=== PATIENT | male | born 1995 | race Caucasian/White ===

== ENCOUNTER 2019-10-12 09:29 | Day surgery (SDC) | payer OTHER, SELFPAY ==
[2019-10-12] VITALS (16 sets, daily range): BP systolic 98–171; BP diastolic 51–102; PULSE 58–94; RESP 9–18; TEMP 36–36.7; O2SAT 94–100; BMI 34.7
--- NOTE | 2019-10-12 | DI.RAD.S_ITS ---
PROCEDURE: XR LUMBAR SPINE 2-3V INDICATIONS: L4-L5, L5-S1 MICRODISECTOMY TECHNIQUE: 4 views of the lumbar spine were acquired. COMPARISON: [facility] Outside Film, MR, MR LUMBAR SPINE WITHOUT CONTRAST, 07/27/2019, 18:33. FINDINGS: Bones: Digital acquisition imaging documenting to level left-sided port access for microdiscectomy procedures at L4-5 and L5-S1. Soft tissues: Overlying bowel gas pattern is normal. No suspicious soft tissue calcifications. IMPRESSION: Sequential microdiscectomy port access on the left at L4-L5 and thereafter L5-S1. Dictated by: Wiliam Alvarado M.D. on 10/12/2019 at 14:45 Approved by: Wiliam Alvarado M.D. on 10/12/2019 at 14:47
[2019-10-12] MEDS: LACTATED RINGERS 1,000 ML 42 ML IV ×2 (10:31→13:27)
--- NOTE | 2019-10-12 11:14 | PM.PREOP ---
Pre-operative Note Interval Note History & Physical reviewed/Exam performed by Physician: Yes Changes to H&P: No
[2019-10-12] MEDS: MIDAZOLAM 2 MG/2 ML VIAL IV (11:52)
[2019-10-12] MEDS: CEFAZOLIN 2 GM/100 ML FROZ.PIGGY IV (11:55)
--- NOTE | 2019-10-12 12:39 | SUR.OPER ---
Prone on spine table, head in foam head support, padded chest and pelvic supports, gel pad at knees, lower legs supported by pillows; nipples, genitalia and toes free of pressure, arms secured on foam padded arm boards at <90 degrees abduction. Tape over blanket at thigh secured to table.
[2019-10-12] MEDS: BUPIVACAINE 0.25% W/ EPI (PF) 10 ML VIAL 30 ML INJ (12:42)
[2019-10-12] MEDS: methylPREDNISolone acet DEPO 40 MG/ML VIAL INJ (12:43)
--- NOTE | 2019-10-12 13:56 | P.OP_ITS ---
Operative Date/Time/Diagnoses Date of procedure: 10/12/19 Time of procedure: 11:56 Pre-op diagnosis: 1. L4-5, L5-S1 disc herniation 2. Lumbar radiculopathy Post-op diagnosis: same Procedure & Clinicians Procedure: 1. L4-5, L5-S1 microdiscectomy 2. Utilization of microsurgical technique and operating microscope Same procedure as scheduled: Yes Indications: Patient has been having chronic back pain and worsening lumbar radiculopathy. Patient failed multiple conservative management with worsening pain weakness and numbness in her lower extremity. Patient has been having difficulty performing activity of daily living. After discussing risks benefits of treatment options, patient elected proceed with surgery. Surgeon: Dennis Small Stencil Maker: Sona Pal'Brien Click Yes if Unassisted: No Anesthesia Type: General Operative Notes Closure Type: primary Specimen(s): none sent Estimated Blood Loss (mL): 20 Blood products transfused: none Procedure in detail: Patient was seen in the preoperative area. Risks and benefits of the surgery was discussed with the patient. Informed consent was obtained from the patient and placed in the chart. Surgical site was marked. Patient was taken to the operative room. General anesthesia was administered. Prophylactic antibiotic was given to the patient less than 30 min before the incision was made. Patient was placed into a prone position on the Sincere table. Patient's back was then prepped and draped in the sterile fashion. Time- out was performed at this time. Using AP and lateral C-arm imaging the interval between L4-5 L5-S1 was identified and marked on patient's back. A 1 inch incision 1 in from midline was made on the left side. The fascia was incised in line with skin incision. Globus MARS retractors was placed inside the incision and docked onto the L4 and L5 lamina. Using microsurgical technique and operating microscope, a L4-5 L5-S1 laminotomy was performed using a Kerrison rongeur. Liagamentum flavum was resected at the site of the laminotomy. The disc space at L4-5 L5-S1 was identified. Patient was found to have L4-5 L5-S1 disc extrusion with significant nerve root impingement. Microdiscectomy was performed by incising the annulus with #11 blade. Microcurettes and pituitary was used to removed h erniated disc fragments of disc from the epidural space. After the microdiskectomy was completed, the area medial lateral superior and inferior to the area of the microdiskectomy was inspected and explored using a micro curette. No other impinging structure was identified. The wound was then irrigated with sterile normal saline. 40 mg Depo-Medrol was placed into the epidural space. The deep fascia was closed with 1-0 Vicryl. The subcutaneous tissue was closed with 2-0 Vicryl. The skin was closed with 4-0 Monocryl. Patient tolerated the procedure well. There were no complications. Patient was transferred recovery room in stable condition. Complications: none Post-operative Condition: stable Disposition: same day surgery Plan for aftercare: Discharge to home
[2019-10-12] MEDS: HYDROMORPHONE 2 MG INJ IV ×4 (14:10→14:20)
[2019-10-12] MEDS: LORazepam 2 MG/ML INJ 0.5 MG IV (14:11)
[2019-10-12] MEDS: hydrOXYzine 50 MG/ML INJ 25 MG IM (14:11)
[2019-10-12] MEDS: fentaNYL 100 MCG/2 ML INJ 50 MCG IV ×2 (14:24→14:35)
--- NOTE | 2019-10-12 14:59 | SUR.PHASEI ---
care transferred to A Garo RN report given.
[2019-10-12] MEDS: OXYCODONE/ACETAMINOPHEN 5/325 TABLET 1 TAB PO ×2 (15:15→15:58)
--- NOTE | 2019-10-12 15:16 | SUR.PHASEI ---
Gave po pain medication for c/o 04/01 pain.
--- NOTE | 2019-10-12 16:01 | SUR.PHASEII ---
Gave patient 2nd dose of po medication for c/o pain. Girlfriend and mother at bedside.
== END 2019-10-12 16:29 | disposition home or self-care (01) ==
LOC: OR 09:33
PROVIDERS: PCP Internal Medicine; Visit Provider Orthopaedic Surgery Orthopaedic Surgery of the Spine
PROC: (CPT 63030; principal; 2019-10-12 11:45)
DX: M51.16 Intervertebral disc disorders with radiculopathy, lumbar region (principal); F17.210 Nicotine dependence, cigarettes, uncomplicated; I10 Essential (primary) hypertension; M19.90 Unspecified osteoarthritis, unspecified site; J45.990 Exercise induced bronchospasm
CPT/HCPCS: 63030; 63035; 72100; 76000; J0690; J1030; J1170; J2060; J2250; J3010; J3410

== ENCOUNTER 2024-10-26 09:06 | Emergency (ER) | payer OTHER, SELFPAY ==
[2024-10-26 09:12] VITALS: BP 158/84; PULSE 70; RESP 16; TEMP 36.3; O2SAT 98; BMI 35.6
--- NOTE | 2024-10-26 09:17 | DI.RAD.S_ITS ---
PROCEDURE: XR ELBOW RT MIN 3V INDICATIONS: crush injury, deformity TECHNIQUE: 3 views of the elbow were acquired. COMPARISON: None. FINDINGS: Bones: No fractures or dislocations. No suspicious bony lesions. Soft tissues: No elbow joint effusion. No suspicious soft tissue calcifications. 4 cm radiopaque pain passes through the proximal ulna. IMPRESSION: 4 cm radiopaque body passes through the proximal ulna, which could be postsurgical or related to today's injury. Dictated by: Ghulam Oconnor M.D. on 10/26/2024 at 9:45 Approved by: Ghulam Oconnor M.D. on 10/26/2024 at 9:47
--- NOTE | 2024-10-26 09:17 | DI.RAD.S_ITS ---
PROCEDURE: XR FOREARM RT 2V INDICATIONS: crush injury, deformity TECHNIQUE: 2 views of the forearm were acquired. COMPARISON: None. FINDINGS: Bones: No acute fractures or dislocations. No suspicious bony lesions. Remote ulnar styloid fracture. Soft tissues: No suspicious soft tissue calcifications or masses. 4 cm radiopaque foreign body passes through the proximal ulna. IMPRESSION: No displaced fracture. 4 cm radiopaque foreign body passes through the proximal ulna. Dictated by: Ghulam Oconnor M.D. on 10/26/2024 at 9:44 Approved by: Ghulam Oconnor M.D. on 10/26/2024 at 9:45
[2024-10-26 09:55] VITALS: PULSE 72
--- NOTE | 2024-10-26 11:21 | ED.UPPEXIN ---
HPI - Extremity Injury (Upper) <Eboni Vazquez PA-C - Last Filed: 10/26/24 11:54> General Chief Complaint: Extremity Injury, Upper Stated Complaint: hurt right arm at work Time Seen by Provider: 10/26/24 10:20 History of Present Illness HPI narrative: Mr. Faulkner is a pleasant 29-year-old male with a past medical history of right ulnar fracture with pins in place who presents to the emergency department for a right forearm crush injury that occurred at work prior to arrival. 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 He is pain, swelling, bruising on the dorsal aspect of the proximal right forearm. States that he occasionally feels some tingling in his hands. Elbow and forearm both feel swollen and painful. He denies any paresthesias, weakness, bleeding, lacerations, wrist pain, hand pain, any other injuries. He is right-hand dominant. Reports he is allergic to Tylenol and Vicodin no medications prior to arrival. Related Data Home Medications Medication Instructions Recorded Confirmed No Known Home Medications 10/12/19 10/12/19 Previous Rx's Medication Instructions Recorded hydroxyzine pamoate 25 mg capsule 25 mg PO QID PRN spasm and nausea 10/12/19 (Vistaril) #20 caps oxycodone 5 mg tablet 5 mg PO Q4H PRN pain #30 tabs 10/12/19 Allergies Allergy/AdvReac Type Severity Reaction Status Date / Time hydrocodone [From Vicodin] AdvReac Intermediate Verified 10/12/19 09:59 Review of Systems <Eboni Vazquez PA-C - Last Filed: 10/26/24 11:54> Review of Systems ROS Unobtainable: All systems reviewed & are unremarkable except as noted in HPI and below Patient History <Eboni Vazquez PA-C - Last Filed: 10/26/24 11:54> Medical History Intervertebral disc disorders with radiculopathy, lumbar region Social History household members: significant other Smoking Status: Current every day smoker alcohol intake: current Smoking Status: Current every day smoker tobacco type: cigarettes alcohol intake frequency: a few times a week Alcohol type: beer Exam <Eboni Vazquez PA-C - Last Filed: 10/26/24 11:54> Narrative Exam Narrative: GENERAL: 29 year old patient appears stated age. Well-developed patient, in no acute distress. HEAD: Atraumatic. Normocephalic. CARDIOVASCULAR: Regular rate. Strong and equal bilateral radial pulses. Brisk capillary refill on all 10 fingers. RESPIRATORY: ?Nonlabored respirations. ?Speaking in clear, full sentences. ?? EXTREMITIES: Ecchymosis and edema on proximal right dorsal forearm. No lacerations. No tenderness to palpation of right elbow or right wrist. Full range of motion of elbow and wrist. Sensation and strength intact in the distribution of median, ulnar, radial nerves bilaterally. No tenderness to palpation on palmar aspect of right forearm. NEURO: AOx3. ?Clear speech. ?Moves all 4 extremities appropriately. SKIN: No rash or erythema of visible areas, ecchymosis on dorsal right forearm described above. Initial Vital Signs Initial Vital Signs: Vital Signs Temperature 97.4 F L 10/26/24 09:12 Pulse Rate 70 10/26/24 09:12 Respiratory Rate 16 10/26/24 09:12 Blood Pressure 158/84 H 10/26/24 09:12 Pulse Oximetry 98 10/26/24 09:12 Oxygen Delivery Method Room Air 10/26/24 09:12 <Parris Maher DO - Last Filed: 10/26/24 18:31> Initial Vital Signs Initial Vital Signs: Vital Signs Temperature 97.4 F L 10/26/24 09:12 Pulse Rate 70 10/26/24 09:12 Respiratory Rate 16 10/26/24 09:12 Blood Pressure 158/84 H 10/26/24 09:12 Pulse Oximetry 98 10/26/24 09:12 Oxygen Delivery Method Room Air 10/26/24 09:12 Course <Eboni Vazquez PA-C - Last Filed: 10/26/24 11:54> Orders Ordered: Discontinued Medications Ibuprofen (Ibuprofen 400 Mg Tablet) 600 mg PO NOW ONE Stop: 10/26/24 11:21 Last Admin: 10/26/24 11:31 Dose: 600 mg Documented By: CTS Vital Signs Vital signs: Vital Signs - 8 hr 10/26/24 11:33 Pulse Rate 77 Respiratory Rate 16 Blood Pressure 150/82 H Pulse Oximetry 97 Oxygen Delivery Method Room Air <Parris Keyshawn CappsconradDO - Last Filed: 10/26/24 18:31> Orders Ordered: Discontinued Medications Ibuprofen (Ibuprofen 400 Mg Tablet) 600 mg PO NOW ONE Stop: 10/26/24 11:21 Last Admin: 10/26/24 11:31 Dose: 600 mg Documented By: CTS Vital Signs Vital signs: Vital Signs - 8 hr 10/26/24 11:33 Pulse Rate 77 Respiratory Rate 16 Blood Pressure 150/82 H Pulse Oximetry 97 Oxygen Delivery Method Room Air MDM - Extremity Injury (Upper) <Eboni Vazquez PA-C - Last Filed: 10/26/24 11:54> Medical Records Attestation: I reviewed the patient's medical records. Imaging Data Right Elbow X-Ray: Radiologist's Impression: PROCEDURE: XR ELBOW RT MIN 3V INDICATIONS: crush injury, deformity TECHNIQUE: 3 views of the elbow were acquired. COMPARISON: None. FINDINGS: Bones: No fractures or dislocations. No suspicious bony lesions. Soft tissues: No elbow joint effusion. No suspicious soft tissue calcifications. 4 cm radiopaque pain passes through the proximal ulna. IMPRESSION: 4 cm radiopaque body passes through the proximal ulna, which could be postsurgical or related to today's injury. Right Forearm X-Ray: Radiologist's Impression: PROCEDURE: XR FOREARM RT 2V INDICATIONS: crush injury, deformity TECHNIQUE: 2 views of the forearm were acquired. COMPARISON: None. FINDINGS: Bones: No acute fractures or dislocations. No suspicious bony lesions. Remote ulnar styloid fracture. Soft tissues: No suspicious soft tissue calcifications or masses. 4 cm radiopaque foreign body passes through the proximal ulna. IMPRESSION: No displaced fracture. 4 cm radiopaque foreign body passes through the proximal ulna. MDM Narrative Medical decision making narrative: 29-year-old male with a past medical history of right ulnar fracture with pins in place who presents to the emergency department for a right forearm crush injury that occurred at work prior to arrival. Differential diagnosis includes but is not limited to crush injury, hematoma, contusion, fracture, sprain, strain, etc. On exam patient is in no acute distress, nontoxic appearing, right arm neurovascularly intact. He has a contusion/hematoma on the proximal dorsal right forearm that is tender. No bony deformities or bony tenderness. Right forearm and right elbow x-ray obtained in triage revealing no fracture, they do show old fracture and old surgical pin. Suspect patient's symptoms are related to crush injury hematoma. We will treat with Avinash wrap, rice therapy, ibuprofen. Discussed signs and symptoms to return to the ED for, recommended follow up with PCP or orthopedic for persistent or worsening pain. Patient verbalized understanding of all information agreeable to plan. He is stable for discharge home. Work paperwork filled out. Discharge Plan Departure Patient Disposition: Home Clinical Impression: Contusion of forearm, right Qualifiers: Encounter type: initial encounter Qualified Code(s): S50.11XA - Contusion of right forearm, initial encounter Crushing injury of forearm, right Qualifiers: Encounter type: initial encounter Qualified Code(s): S57.81XA - Crushing injury of right forearm, initial encounter Instructions: DI for Crush Injury Activity Restrictions/Additional Instructions: Thank you for coming to the emergency department today. Your x-rays today show no fractures of the right forearm or elbow. Please use RICE therapy for your pain in addition to ibuprofen/acetaminophen. Rest the painful area. Ice the area of pain/swelling for at least 15 minutes, 4x a day. Compress the area of swelling using a brace, wrap, or splint if applied. Elevate the painful or swollen extremity by supporting it above the level of the heart with pillows when sitting or laying. Please take Ibuprofen (Motrin/Advil) or Acetaminophen (Tylenol) for pain. These are available over the counter. You may take Ibuprofen 600 mg every 8 hours with food for pain. You may also take Acetaminophen 650 mg every 4-6 hours for pain. Do not exceed 3000 mg of Tylenol a day as this can cause liver damage. Do not drink alcohol with either of these medications. Please follow up with your primary care doctor within the next 2-3 days for ER follow-up. (If you do not have a PCP you can call [phone]. ?to schedule an appointment with an [facility] Primary Care Provider) IF YOU DEVELOP ANY NEW OR WORSENING SYMPTOMS, RETURN TO THE ER! Please read the attached instructions, they highlight more specific treatments and interventions for you at home. Thank you for letting me participate in your care, Eboni Vazquez PA-C Prescriptions: No Action No Known Home Medications oxycodone 5 mg tablet 5 mg PO Q4H PRN (Reason: pain) Qty: 30 0RF hydroxyzine pamoate [Vistaril] 25 mg capsule 25 mg PO QID PRN (Reason: spasm and nausea) Qty: 20 0RF Referrals: Scarlett Patel MD [Primary Care Provider] - Stand Alone Forms: Patient Portal/API/Survey, Work Release Note ED Sign-out <Parris Maher DO - Last Filed: 10/26/24 18:31> Cosign ED Attending Cosmeryature Attestation: I was immediately available in the department for consultation.
[2024-10-26] MEDS: IBUPROFEN 400 MG TABLET 600 MG PO (11:31)
[2024-10-26 11:33] VITALS: BP 150/82; PULSE 77; RESP 16; O2SAT 97
--- NOTE | 2024-10-26 11:57 | PC.NURSE ---
pt's L&I paperwork was filled out by SRIDHAR Mckeon. Copy in chart.
== END 2024-10-26 11:58 | disposition home or self-care (01) ==
PROVIDERS: Emergency Provider Physician Assistant; PCP Internal Medicine
DX: S57.81XA Crushing injury of right forearm, initial encounter (principal); S50.11XA Contusion of right forearm, initial encounter; Z87.81 Personal history of (healed) traumatic fracture; Z98.890 Other specified postprocedural states; W23.0XXA Caught, crushed, jammed, or pinched between moving objects, initial encounter; Y99.0 Civilian activity done for income or pay
CPT/HCPCS: 73080; 73090; 99283; 99284

== ENCOUNTER 2025-08-11 06:11 | Emergency (ER) | payer OTHER, SELFPAY ==
[2025-08-11 06:15] VITALS: BP 183/105; PULSE 94; RESP 18; TEMP 36.9
--- NOTE | 2025-08-11 06:17 | ED_ITS ---
HPI - General Adult General Chief complaint: Extremity Injury, Upper Stated complaint: Small cut on right middle finger L&I Time Seen by Provider: 08/11/25 06:16 History of Present Illness HPI narrative: 30-year-old gentleman no significant medical problems while working at [employer] on 08/05sustained a small cut to the dorsal surface of the PIP joint right middle finger. Did not seem to be much of a problem at the time. By the , it was more swollen, he was soaking it and noted moderate amount of purulent material easily drained. Again, seemed to improve but over the last day or so he is noticing increasing swelling to the right middle finger, dorsum of the hand and some erythema along the finger itself. There was no lymphangitic streaking. He is able to flex and extend the fingers with some limitation to the middle finger because of swelling overall. Does not appear to have any tenderness up into the hand wrist flexor tendons. There has been no additional draining. He is not describing any systemic symptoms and has not had any recent fevers. He is not up-to-date on tetanus Related Data Previous Rx's ?Medication ?Instructions ?Recorded hydroxyzine pamoate 25 mg capsule 25 mg PO QID PRN spa sm and nausea 10/12/19 (Vistaril) #20 caps oxycodone 5 mg tablet 5 mg PO Q4H PRN pain #30 tab s 10/12/19 doxycycline hyclate 100 mg capsule 100 mg PO BID #14 c aps 08/11/25 Allergies Allergy/AdvReac Type Severity Reaction Status Date / Time hydrocodone (From Vicodin) AdvReac Intermediate Verified 10/12/19 09:59 Review of Systems Review of Systems Narrative: Pertinent positive and negative findings as per HPI Patient History Medical History Intervertebral disc disorders with radiculopathy, lumbar region Social History household members: significant other alcohol intake: current tobacco type: cigarettes alcohol intake frequency: a few times a week Alcohol type: beer Exam Initial Vital Signs Initial Vital Signs: General: Alert appropriate in no acute distress Respiratory: Able to speak in full sentences, no obvious respiratory distress Skin: No obvious rashes, warm and dry Neurologic: Grossly intact no obvious asymmetries or abnormalities Psych: appropriate insight and affect, cooperative Extremity: Dorsum of the right hand is slightly swollen, right middle finger is swollen there is some minor erythema along the medial and lateral edges of the finger. Small wound over the dorsal surface of the PIP joint with no obvious fluctuance or drainage. He is neurovascularly intact Medical Decision Making MDM Narrative Medical decision making narrative: Otherwise healthy 30-year-old gentleman with small cut to the dorsum of the right middle finger almost 6 days ago, has drained and is now still swollen not clearly improving and comes in for further evaluation. On exam it does not appear that he has an extensor or flexor tenosynovitis. Does not appear to have deeper tissue abscess. It does look like there is some cellulitis developing around the small abrasion to the knuckle. At this point I do not believe that he is septic, but this is a deep tissue infection, pain does not suggest significant fascial spreading. There was no obvious abscess. I did review all of my concerns including significant deeper tissue infection and consequences of finger infections that are not appropriately treated. With shared decision- making we opted to begin with antibiotics and evaluate over the next 24-48 hours. He clearly understands the importance of returning to the ER if he is not getting better. He is given a tetanus shot today. Additional Information: Self and shared company form for injury at work filled out. Activity prescription form filled out Discharge Plan Departure Patient Disposition: Home Clinical Impression: Finger infection, Elevated blood pressure reading Instructions: DI for High Blood Pressure Activity Restrictions/Additional Instructions: Thank you for coming in today I share your concern that after draining, your finger infection is still not obviously improving. Finger infections can turn into a ?very big deal?. At this time, I do not see any streaking up your arm, yes there is swelling over the back of your hand but it does not look like there was that much more pus that needs to be drained out. I am going to suggest that we start with antibiotics and if you are not obviously improving within 24 hours or clearly getting worse, you do need to return to the emergency department for further evaluation including lab work, IV antibiotics and imaging of the finger. Using 400 mg of ibuprofen (2 [id number] pills) and 1 Tylenol every 6 hours can be very helpful in controlling pain. You were given a tetanus shot today this should be good for 10 years, until 2034 While you were in the ER, your blood pressure was significantly elevated. I would recommend that you talk to your about getting a blood pressure cuff to have at home and keep track of blood pressures when you are not in the emergency department with pain and with a finger infection. At your age your blood pressure should be 120/70 or lower. I would strongly recommend finding a primary care physician. If you do not have a primary care physician, you can contact [facility] at [phone]. They can help get you set up with a physician in our local community Your self-insured company report was filled out today Prescriptions: New doxycycline hyclate 100 mg capsule 100 mg PO BID Qty: 14 0RF No Action oxycodone 5 mg tablet 5 mg PO Q4H PRN (Reason: pain) Qty: 30 0RF hydroxyzine pamoate [Vistaril] 25 mg capsule 25 mg PO QID PRN (Reason: spasm and nausea) Qty: 20 0RF Referrals: Scarlett Patel MD [Primary Care Provider, Internal Medicine] Stand Alone Forms: Patient Portal/API
[2025-08-11] MEDS: DOXYCYCLINE HYCLATE 100 MG TABLET PO (06:33)
[2025-08-11] MEDS: TET,DIPH,PERTUSS(ACELL),VAC/PF 0.5 ML SYRINGE IM (06:34)
--- OUTSIDE RECORDS SUMMARY | 2025-08-13 13:09 | XMS_ITS | Encounter Summary ---
Author Organization [facility] Address [facility] [address] Care Team Providers Care Paper Supervisor Name Role Phone Scarlett Patel Primary Care Provider [phone] Encounter Details Date Type Department Care Team (Late st Contact Info) Description 05/29/2017 Scanned Document SCANNED ONLY Scanned, Document Social History Tobacco Use Types Packs/Day Years Used Date Smoking Tobacco: Every Day Cigarettes Smokeless Tobacco: Never Alcohol Use Standard Drinks/Week Comments Yes 0 (1 standard drink = 0.6 oz pur e alcohol) Occasional Sex and Gender Information Value Date Recorded Sex Assigned at Not on file Legal Sex Male 3:51 AM PDT Gender Identity Not on file Sexual Orientation Not on file documented as of this encounter Plan of Treatment Not on file documented as of this encounter Visit Diagnoses Not on filedocumented in this encounter Care Teams Paper Supervisor Relationship Specialty Start Date End Date Scarlett Patel [address] [place], [place] [id number] PCP - General Internal Medicine 03/21/23 documented as of this encounter
--- OUTSIDE RECORDS SUMMARY | 2025-08-13 13:09 | XMS_ITS | Encounter Summary ---
Author Organization [facility] Address [facility] [address] Care Team Providers Care Online Marketing Manager Name Role Phone Scarlett Patel Primary Care Provider [phone] Encounter Details Date Type Department Care Team (Late st Contact Info) Description 01/10/2018 Scanned Document SCANNED ONLY Scanned, Document Social History Tobacco Use Types Packs/Day Years Used Date Smoking Tobacco: Former Cigarettes Q uit: 05/24/2017 Smokeless Tobacco: Never Alcohol Use Standard Drinks/Week [...] on filedocumented in this encounter Care Teams Online Marketing Manager Relationship Specialty Start Date End Date Scarlett Patel [address] [place] [phone] PCP - General Internal Medicine 03/21/23 documented as of this encounter
--- OUTSIDE RECORDS SUMMARY | 2025-08-13 13:09 | XMS_ITS | Clinical Summary ---
Author Organization [facility] Address [facility] [address] Care Team Providers Care Stock Selector Name Role Phone Scarlett Patel Primary Care Provider [phone] Allergies No known active allergies Medications * This document contains information received from the source organization and may not represent a complete record from that organization. ibuprofen (MOTRIN) 200 MG tablet Take 200 mg by mouth every 6 (six) hours as needed for Pain Active oxyCODONE-aceta minophen (PERCOCET) 5-325 mg per tablet TK 1 TO 2 TS PO TID PRN. 0 8 Active albuterol 90 mcg/actuation inhaler Inhale 2 puffs into the lungs every 4 (four) hours as needed for Wheezing or Shortness of Breath 1 each 3 Active Active Problems Problem Noted Date Diagnosed Date Olecranon fracture Social History Tobacco Use Types Packs/Day Years [...] on file Sexual Orientation Not on file Last Filed Vital Signs Vital Sign Reading Time Taken Comments Blood Pressure 151/102 03/21/2023 7:09 AM PDT Pulse 78 03/21/2023 8:19 AM PDT Temperature 36.7 C (98.1 F) 03/21/2023 7:09 AM PDT Respiratory Rate 16 03/21/2023 8:19 AM PDT Oxygen Saturation 97% 03/21/2023 8:19 AM PDT Inhaled Oxygen Concentration - - Weight 104.3 kg (230 lb) 02/14/2018 10:43 AM PDT Height 177.8 cm (5' 10) 02/14/2018 10:43 AM PDT Body Mass Index 33 02/14/2018 10:43 AM PDT Plan of Treatment Health Maintenance Due Date Last Done Comments Disability Screening 1995 Hepatitis C Screening 1995 Varicella Vaccine (1 of 2 - 13+ 2-dose series) 2008 HIV Screening 2010 DTaP/Tdap/Td Vaccine (1 - Tdap) 2014 HPV Vaccine (1 - 3-dose SCDM series) 2022 Drug, Alcohol, and Depressio n Screening 09/23/2024 SOGIE 09/23/2024 Covid-19 Vaccine (1 - 2024-2 6 season) 2025 Influenza Vaccine (#1) 2025 Zoster (1 of 2) 2045 RSV Vaccines (1 - 1-dose 75+ series) 2070 Pneumococcal Ages 0-5 Years and At Risk Patients Ages 6-49 Years Aged Out No longer eligible based on patient's age to complete this topic Medical Devices Implanted Type Area Assignment Desk Assistant Device Identifier Shelf Expiration Date Model / Serial / Lot Pin Tnsnbnd Kit 70mm Orth Ss Strl - [id number] Implanted:Qty : 1 on 05/31/2017 by Parviz Davalos MD at [facility] Implant Screw Right: Elbow ACUMED 03/22/2020 [id number] / / [id number] Wire 150mm 1.25mm Martínez Ss - [id number] Implanted:Qty : 1 on 05/31/2017 by Parviz Davalos MD at [facility] Implant Screw Right: Elbow [employer]ES [id number] / / Wire Ss Ethpk 7 18in Tie Mfil Cstm Nonabsorb - [id number] Implanted:Qty : 1 on 05/31/2017 by Parviz Davalos MD at [facility] Implant Wire Right: Elbow [employer] [id number] / / Insurance [address] [phone] [facility] [address] [phone] [facility] Advance Directives Documents on File Type Date Recorded Patient Receptionist Doctor'S Office Expl anation Advance Directives and Livin g Will 05/31/2017 12:00 AM * Full Code (Latest Code Status on File) Date Activated Date Inactivated Comments 05/31/2017 1:36 PM 05/31/2017 9:30 PM Care Teams Stock Selector Relationship Specialty Start Date End Date Scarlett Patel [address] [place] [id number] PCP - General Internal Medicine 03/21/23
--- OUTSIDE RECORDS SUMMARY | 2025-08-13 13:09 | XMS_ITS | Encounter Summary ---
Author Organization [facility] Address [facility] [address] Care Team Providers Care Interior Design Program Chair Name Role Phone Scarlett Patel Primary Care Provider [phone] Encounter Details Date Type Department Care Team (Late st Contact Info) Description 11/21/2017 Scanned Document SCANNED ONLY Scanned, Document Social [...] on filedocumented in this encounter Care Teams Interior Design Program Chair Relationship Specialty Start Date End Date Scarlett Patel [address] [place] [id number] PCP - General Internal Medicine 03/21/23 documented as of this encounter
--- OUTSIDE RECORDS SUMMARY | 2025-08-13 13:09 | XMS_ITS | Clinical Summary ---
Author Organization [facility] Address [address] [place] [address] Care Team Providers Care Substation Electrician Name Role Phone Pcp, None Selected Primary Care Provider Unavail able Social History Tobacco Use Types Packs/Day Years Used Date Smoking Tobacco: Never Assessed Sex and Gender Information Value Date Recorded Sex Assigned at Not on file Legal Sex Male 10:48 AM PST Gender Identity Not on file Sexual Orientation Not on file Plan of Treatment Health Maintenance Due Date Last Done Comments MMR Vaccines (1 of 1 - Stand colin series) 1996 Depression Screening (PHQ-2) 2007 Varicella Vaccines (1 of 2 - 13+ 2-dose series) 2008 DTaP,Tdap,and Td Vaccines (1 - Tdap) 2014 Hepatitis B Vaccines (1 of 3 - 19+ 3-dose series) 2014 COVID-19 Vaccine ( - 2024-2 6 season) 2025 Influenza Vaccine (#1) 2025 RSV Patients Over 60 years O R qualifying ( Patients) (1 - 1-dose 75+ series) 2070 HM Pneumococcal Combined Age 0-49 Aged Out No longer eligible based on patient's age to complete this topic HPV Vaccines Aged Out No longer eligi ble based on patient's age to complete this topic Hepatitis A Vaccines Aged Out No long er eligible based on patient's age to complete this topic IPV Vaccines Aged Out No longer eligi ble based on patient's age to complete this topic Insurance * Guarantor: Fritz Faulkner Account Type Relation to Patient Date of Phone Billing Address Personal/Family Self 1995 [address] [facility] [id number] [place] [address] [facility] Care Teams Substation Electrician Relationship Specialty Start Date End Date Pcp, None Selected PCP - General 01/07/25
--- OUTSIDE RECORDS SUMMARY | 2025-08-13 13:09 | XMS_ITS | Encounter Summary ---
Author Organization Located within [facility] Address [address] [place] [address] Care Team Providers Care Master Control Engineer Name Role Phone Scarlett Patel Primary Care Provider [phone] Reason for Referral * Hospital-Outpatient (Routine) - Closed Specialty Diagnoses / Procedures Referred By Yuri gordon Referred To Contact General Surgery Diagnoses Closed displaced fracture of olecranon process of left ulna with intra-articular extension, initial encounter Procedures Case request operating room: ORIF [place]OW [place] OPEN TX ULNAR FRACTURE PROX END Parviz Davalos MD [facility] [place] [address] [place] [address] Phone: tel: Referral ID Status Reason Start Date Expiration Date V isits Requested Visits Authorized [id number] Closed Service Not Available In-House 05/29/2017 05/29/2018 1 1 Encounter Details Date Type Department Care Team (Late st Contact Info) Description 05/29/2017 Prep for Case ORTHOPEDIC SURGERY - [place], [place] - [facility] [address] [address] [place] [address] Parviz Davalos MD License Closed displaced fracture of olecranon process of left ulna with intra-articular extension, initial encounter Social History Tobacco Use Types Packs/Day Years [...] documented as of this encounter Visit Diagnoses Diagnosis Closed displaced fracture of olecranon process of left ulna with intra-articular extension, initial encounter documented in this encounter Care Teams Master Control Engineer Relationship Specialty Start Date End Date Scarlett Patel [address] [place] [phone] PCP - General Internal Medicine 03/21/23 documented as of this encounter
--- OUTSIDE RECORDS SUMMARY | 2025-08-13 13:09 | XMS_ITS | Encounter Summary ---
Author Organization [facility] Address [facility] [address] Care Team Providers Care Application Designer Name Role Phone Scarlett Patel Primary Care Provider [phone] Encounter Details Date Type Department Care Team (Late st Contact Info) Description 07/02/2017 Scanned Document SCANNED ONLY Scanned, Document Social [...] on filedocumented in this encounter Care Teams Application Designer Relationship Specialty Start Date End Date Scarlett Patel [address] [place] [phone] PCP - General Internal Medicine 03/21/23 documented as of this encounter
--- OUTSIDE RECORDS SUMMARY | 2025-08-13 13:09 | XMS_ITS | Encounter Summary ---
Author Organization [facility] Address [facility] [address] Care Team Providers Care Off Track Betting Manager Name Role Phone Scarlett Patel Primary Care Provider [phone] Encounter Details Date Type Department Care Team (Late st Contact Info) Description 10/04/2017 Scanned Document SCANNED ONLY Scanned, Document Social [...] on filedocumented in this encounter Care Teams Off Track Betting Manager Relationship Specialty Start Date End Date Scarlett Patel [address] [place] [phone] PCP - General Internal Medicine 03/21/23 documented as of this encounter
--- OUTSIDE RECORDS SUMMARY | 2025-08-13 13:09 | XMS_ITS | Encounter Summary ---
Author Organization [facility] Address [address] [place] [address] Care Team Providers Care Multimedia Instructional Designer Name Role Phone Scarlett Patel Primary Care Provider [phone] Reason for Referral * Outpatient [facility] (Routine) - Closed Specialty Diagnoses / Procedures Referred By Yuri gordon Referred To Contact Diagnoses Closed displaced fracture of olecranon process of left ulna with intra-articular extension, initial encounter Procedures [place] REMOVAL DEEP IMPLANT Parviz Davalos MD [facility] [address] [place] [address] Referral ID Status Reason Start Date Expiration Date V isits Requested Visits Authorized [id number] Closed Service Not Available In-House 09/20/2017 09/20/2018 1 1 Encounter Details Date Type Department Care Team (Latest Contact Info) Description 09/20/2017 Order Pickling Machine Operator ORTHOPEDIC SURGERY - [place], [place] - [facility] [id number] [facility] [address] [place] [address] Parviz Davalos MD License Closed displaced fracture [...] as of this encounter Plan of Treatment Scheduled Referrals Name Type Priority Associated Diagnoses Order Schedule External - (Surgery Scheduling) - [facility] Outpatient Referral Routine Closed displaced fracture of olecranon process of left ulna with intra-articular extension, initial encounter Ordered: 09/20/2017 documented as of this encounter Visit Diagnoses Diagnosis Closed displaced fracture of olecranon process of left ulna with intra-articular extension, initial encounter documented in this encounter Care Teams Multimedia Instructional Designer Relationship Specialty Start Date End Date Scarlett Patel [address] [place] [id number] PCP - General Internal Medicine 03/21/23 documented as of this encounter
--- OUTSIDE RECORDS SUMMARY | 2025-08-13 13:09 | XMS_ITS | Encounter Summary ---
Author Organization [facility] Address [facility] [address] Care Team Providers Care Mine Wirer Name Role Phone Scarlett Patel Primary Care Provider [phone] Encounter Details Date Type Department Care Team (Late st Contact Info) Description 02/12/2018 Scanned Document SCANNED ONLY Scanned, Document Social [...] on filedocumented in this encounter Care Teams Mine Wirer Relationship Specialty Start Date End Date Scarlett Patel [address] [place] [id number] PCP - General Internal Medicine 03/21/23 documented as of this encounter
--- OUTSIDE RECORDS SUMMARY | 2025-08-13 13:09 | XMS_ITS | Encounter Summary ---
Author Organization [facility] Address [facility] [address] Care Team Providers Care Dairy Helper Name Role Phone Scarlett Patel Primary Care Provider [phone] Encounter Details Date Type Department Care Team (Latest Contact Info) Description 07/24/2014 Documentation SCANNED ONLY Scanned, Document Social History Tobacco [...] on filedocumented in this encounter Care Teams Dairy Helper Relationship Specialty Start Date End Date Scarlett Patel [address] [place] [address] PCP - General Internal Medicine 03/21/23 documented as of this encounter
== END 2025-08-11 06:51 | disposition home or self-care (01) ==
PROVIDERS: Emergency Provider Emergency Medicine; PCP Internal Medicine
DX: L03.011 Cellulitis of right finger (principal); R03.0 Elevated blood-pressure reading, without diagnosis of hypertension; Z23 Encounter for immunization
CPT/HCPCS: 90471; 99283; 90715

== ENCOUNTER 2025-08-12 06:03 | Emergency (ER) | payer OTHER, SELFPAY ==
[2025-08-12] VITALS (11 sets, daily range): BP systolic 98–134; BP diastolic 56–79; PULSE 67–93; RESP 20; TEMP 36.5; O2SAT 94–97; BMI 35.9
--- NOTE | 2025-08-12 06:13 | ED.GENADULT ---
HPI - General Adult <Jeffyr Small, DO - Last Filed: 08/12/25 11:29> General Chief complaint: Nausea/Vomiting/Diarrhea Stated complaint: Blood pressure 145/50 sent by PCP Time Seen by Provider: 08/12/25 06:12 History of Present Illness HPI narrative: 30-year-old gentleman with no significant medical history seen for small cut to dorsal surface of PIP joint of right middle finger prescribed doxycycline for which he started his 1st dose last evening and started to develop multiple episodes of nonbilious nonbloody nausea vomiting along with brain fog for which he just came to the ER after his overnight shift this morning. Patient denies any diarrhea, constipation, abdominal pain, chest pain, cough, sore throat, fever, chills, body aches, urinary complaints. Patient reports his got over RSV 2 weeks ago his symptoms have since resolved also from that episode about a week ago. Other than what is stated 14 point review of system is negative. Related Data Previous Rx's ?Medication ?Instructions ?Recorded hydroxyzine pamoate 25 mg capsule 25 mg PO QID PRN spasm and nausea 10/12/19 (Vistaril) #20 caps oxycodone 5 mg tablet 5 mg PO Q4H PRN pain #30 tabs 10/12/19 doxycycline hyclate 100 mg capsule 100 mg PO BID #14 caps 08/11/25 cefpodoxime 200 mg tablet 200 mg PO BID #20 tabs 08/12/25 ondansetron 4 mg disintegrating 4 mg PO Q8H PRN nausea and 08/12/25 tablet vomiting #7 tabs sulfamethoxazole 800 1 tab PO BID #10 tabs 08/12/25 mg-trimethoprim 160 mg tablet (Bactrim DS) Allergies Allergy/AdvReac Type Severity Reaction Status Date / Time hydrocodone (From Vicodin) AdvReac Intermediate Verified 08/12/25 06:10 Review of Systems <Jeffry Small, DO - Last Filed: 08/12/25 11:29> Review of Systems ROS Unobtainable: All systems reviewed & are unremarkable except as noted in HPI and below Patient History <Jeffry Small, DO - Last Filed: 08/12/25 11:29> Medical History Intervertebral disc disorders with radiculopathy, lumbar region Social History household members: significant other Smoking Status: Current every day smoker alcohol intake: current tobacco type: cigarettes alcohol intake frequency: a few times a week Alcohol type: beer Exam <Jeffry Small DO - Last Filed: 08/12/25 11:29> Narrative Exam Narrative: GENERAL: [30] year old patient appears stated age. Well-developed patient, in mild distress. HEAD: Atraumatic. Normocephalic. EYES: Pupils equal round and reactive. Extraocular motions intact. No scleral icterus. No injection or drainage. ENT: Nose without bleeding, purulent drainage. Throat without erythema, tonsillar hypertrophy or exudate. Airway patent. NECK: Trachea midline. Non tender CARDIOVASCULAR: Regular rate and rhythm without murmurs, gallops, or rubs. RESPIRATORY: Clear to auscultation. Breath sounds equal bilaterally. No wheezes, rales, or rhonchi. GASTROINTESTINAL: Abdomen soft, non-tender, nondistended. EXTREMITIES: No edema or joint tenderness. BACK: Nontender without deformity or crepitance. No flank tenderness. NEURO: AOx3. SKIN: No rash or erythema of visible areas Initial Vital Signs Initial Vital Signs: Vital Signs Temperature 97.7 F 08/12/25 06:10 Pulse Rate 93 H 08/12/25 06:10 Respiratory Rate 20 08/12/25 06:10 Blood Pressure 134/79 08/12/25 06:10 Pulse Oximetry 97 08/12/25 06:10 Oxygen Delivery Method Room Air 08/12/25 06:10 <Esvin Don MD - Last Filed: 08/12/25 10:18> Initial Vital Signs Initial Vital Signs: Vital Signs Temperature 97.7 F 08/12/25 06:10 Pulse Rate 93 H 08/12/25 06:10 Respiratory Rate 20 08/12/25 06:10 Blood Pressure 134/79 08/12/25 06:10 Pulse Oximetry 97 08/12/25 06:10 Oxygen Delivery Method Room Air 08/12/25 06:10 Course <Jeffry Small DO - Last Filed: 08/12/25 11:29> Orders Ordered: ED Orders 08/12/25 06:26 CBC Auto Diff [Complete Blood Count AUTO DIFF] Stat CMP [Comprehensive Metabolic Panel] Stat Lipase Stat 08/12/25 06:36 Covid-19 + FLU A/B + RSV - PCR Stat Discontinued Medications Lactated Ringer's (Lactated Ringers) 1,000 mls @ 1,000 mls/hr IV BOLUS ONE Stop: 08/12/25 07:21 Last Infusion: 08/12/25 07:43 Dose: Infused Documented By: Admin: 08/12/25 06:31 Dose: 1,000 mls/hr Documented By: WILLAM Ondansetron HCl (Ondansetron 4 Mg/2 Ml Inj) 4 mg IV NOW ONE Stop: 08/12/25 06:23 Last Admin: 08/12/25 06:30 Dose: 4 mg Documented By: WILLAM Vital Signs Vital signs: Vital Signs - 8 hr 08/12/25 06:10 08/12/25 06:34 08/12/25 06:36 Temperature 97.7 F Pulse Rate 93 H 89 Respiratory Rate 20 Blood Pressure 134/79 129/67 Pulse Oximetry 97 97 Oxygen Delivery Method Room Air 08/12/25 06:36 08/12/25 07:00 08/12/25 07:00 Temperature Pulse Rate 82 93 H Respiratory Rate Blood Pressure 118/67 Pulse Oximetry 96 96 Oxygen Delivery Method 08/12/25 07:30 08/12/25 07:30 08/12/25 08:00 Temperature Pulse Rate 80 82 Respiratory Rate Blood Pressure 118/61 Pulse Oximetry 97 96 Oxygen Delivery Method 08/12/25 08:00 08/12/25 08:30 08/12/25 08:30 Temperature Pulse Rate 81 Respiratory Rate Blood Pressure 123/62 103/56 L Pulse Oximetry 94 Oxygen Delivery Method 08/12/25 09:00 08/12/25 09:00 08/12/25 09:30 Temperature Pulse Rate 67 85 Respiratory Rate Blood Pressure 98/57 L Pulse Oximetry 96 96 Oxygen Delivery Method 08/12/25 09:31 08/12/25 09:31 08/12/25 10:00 Temperature Pulse Rate 80 Respiratory Rate Blood Pressure 128/65 119/61 Pulse Oximetry 97 Oxygen Delivery Method 08/12/25 10:00 Temperature Pulse Rate 84 Respiratory Rate Blood Pressure Pulse Oximetry 97 Oxygen Delivery Method <Esvin Don MD - Last Filed: 08/12/25 10:18> Orders Ordered: ED Orders 08/12/25 06:26 CBC Auto Diff [Complete Blood Count AUTO DIFF] Stat CMP [Comprehensive Metabolic Panel] Stat Lipase Stat 08/12/25 06:36 Covid-19 + FLU A/B + RSV - PCR Stat Discontinued Medications Lactated Ringer's (Lactated Ringers) 1,000 mls @ 1,000 mls/hr IV BOLUS ONE Stop: 08/12/25 07:21 Last Infusion: 08/12/25 07:43 Dose: Infused Documented By: Admin: 08/12/25 06:31 Dose: 1,000 mls/hr Documented By: WILLAM Ondansetron HCl (Ondansetron 4 Mg/2 Ml Inj) 4 mg IV NOW ONE Stop: 08/12/25 06:23 Last Admin: 08/12/25 06:30 Dose: 4 mg Documented By: WILLAM Vital Signs Vital signs: Vital Signs - 8 hr 08/12/25 06:10 08/12/25 06:34 08/12/25 06:36 Temperature 97.7 F Pulse Rate 93 H 89 Respiratory Rate 20 Blood Pressure 134/79 129/67 Pulse Oximetry 97 97 Oxygen Delivery Method Room Air 08/12/25 06:36 08/12/25 07:00 08/12/25 07:00 Temperature Pulse Rate 82 93 H Respiratory Rate Blood Pressure 118/67 Pulse Oximetry 96 96 Oxygen Delivery Method 08/12/25 07:30 08/12/25 07:30 08/12/25 08:00 Temperature Pulse Rate 80 82 Respiratory Rate Blood Pressure 118/61 Pulse Oximetry 97 96 Oxygen Delivery Method 08/12/25 08:00 08/12/25 08:30 08/12/25 08:30 Temperature Pulse Rate 81 Respiratory Rate Blood Pressure 123/62 103/56 L Pulse Oximetry 94 Oxygen Delivery Method 08/12/25 09:00 08/12/25 09:00 08/12/25 09:30 Temperature Pulse Rate 67 85 Respiratory Rate Blood Pressure 98/57 L Pulse Oximetry 96 96 Oxygen Delivery Method 08/12/25 09:31 08/12/25 09:31 08/12/25 10:00 Temperature Pulse Rate 80 Respiratory Rate Blood Pressure 128/65 119/61 Pulse Oximetry 97 Oxygen Delivery Method 08/12/25 10:00 Temperature Pulse Rate 84 Respiratory Rate Blood Pressure Pulse Oximetry 97 Oxygen Delivery Method Medical Decision Making <Jeffry Small, DO - Last Filed: 08/12/25 11:29> Lab Data 08/12/25 06:26 08/12/25 06:26 Labs: Lab Results 08/12/25 08/12/25 Range/Units 06:26 06:36 WBC 7.6 (4.5-11.0) X10^3/uL RBC 4.52 (4.5-5.9) X10^6/uL Hgb 14.4 (13.5-17.5) g/dL Hct 41.1 (41-53) % MCV 90.8 (80-100) fL MCH 31.7 (26-34) PG MCHC 34.9 (30-36) % RDW 12.6 (11.6-14.8) % Plt Count 329 (150-400) X10^3/uL Neut % (Auto) 77.4 H (50-75) % Lymph % (Auto) 12.2 L (25-40) % Davis % (Auto) 9.2 (3-14) % Eos % (Auto) 0.5 L (2-4) % Baso % (Auto) 0.7 (0-2) % Neut # (Auto) 5900 (5696-8402) /uL Lymph # (Auto) 900 L (6436-2107) /uL Davis # (Auto) 700 (0-900) /uL Eos # (Auto) 0 (0-450) /uL Baso # (Auto) 100 (0-100) /uL Sodium 137 (137-145) mmol/L Potassium 3.6 (3.4-5.1) mmol/L Chloride 103 (98-107) mmol/L Carbon Dioxide 24 (22-32) mmol/L BUN 11 (9-20) mg/dL Creatinine 0.68 (0.66-1.25) mg/dL Estimated GFR > 60 (>60) mL/min BUN/Creatinine Ratio 16.2 (6-22) Glucose 103 H (70-99) mg/dL Calcium 9.1 (8.4-10.2) mg/dL Total Bilirubin 1.6 H (0.2-1.3) mg/dL AST 28 (17-59) IU/L ALT 44 (<50) IU/L Alkaline Phosphatase 72 (38-126) U/L Total Protein 7.8 (6.3-8.2) g/dL Albumin 4.6 (3.5-5.0) g/dL Globulin 3.2 (1.7-4.1) g/dL Albumin/Globulin Ratio 1.4 (1.0-2.8) Lipase 61 (23-300) U/L SARS-CoV-2 (PCR) Negative (Negative) Influenza A (RT-PCR) Flu a negative (NEGATIVE) Influenza B (RT-PCR) Flu b negative (NEGATIVE) RSV (PCR) Negative (Negative) MDM Narrative Medical decision making narrative: All lab work, vital signs, nurse triage note, medication list, previous ER visits, and all imaging studies reviewed. WBC 7.6 hemoglobin 14.4 platelets 329 sodium 137 potassium 3.6 chloride 103 CO2 24 BUN 11 creatinine 0.68 glucose 103 T bili 1.6 LFTs normal lipase 61. Patient given 1 L lactated ringer bolus and Zofran 4 mg IV. COVID flu RSV pending at time of dictation. Pt s/o to at shift change pending final disposition. <Esvin Don MD - Last Filed: 08/12/25 10:18> Lab Data Labs: Lab Results 08/12/25 08/12/25 Range/Units 06:26 06:36 WBC 7.6 (4.5-11.0) X10^3/uL RBC 4.52 (4.5-5.9) X10^6/uL Hgb 14.4 (13.5-17.5) g/dL Hct 41.1 (41-53) % MCV 90.8 (80-100) fL MCH 31.7 (26-34) PG MCHC 34.9 (30-36) % RDW 12.6 (11.6-14.8) % Plt Count 329 (150-400) X10^3/uL Neut % (Auto) 77.4 H (50-75) % Lymph % (Auto) 12.2 L (25-40) % Davis % (Auto) 9.2 (3-14) % Eos % (Auto) 0.5 L (2-4) % Baso % (Auto) 0.7 (0-2) % Neut # (Auto) 5900 (6144-6482) /uL Lymph # (Auto) 900 L (2096-2891) /uL Davis # (Auto) 700 (0-900) /uL Eos # (Auto) 0 (0-450) /uL Baso # (Auto) 100 (0-100) /uL Sodium 137 (137-145) mmol/L Potassium 3.6 (3.4-5.1) mmol/L Chloride 103 (98-107) mmol/L Carbon Dioxide 24 (22-32) mmol/L BUN 11 (9-20) mg/dL Creatinine 0.68 (0.66-1.25) mg/dL Estimated GFR > 60 (>60) mL/min BUN/Creatinine Ratio 16.2 (6-22) Glucose 103 H (70-99) mg/dL Calcium 9.1 (8.4-10.2) mg/dL Total Bilirubin 1.6 H (0.2-1.3) mg/dL AST 28 (17-59) IU/L ALT 44 (<50) IU/L Alkaline Phosphatase 72 (38-126) U/L Total Protein 7.8 (6.3-8.2) g/dL Albumin 4.6 (3.5-5.0) g/dL Globulin 3.2 (1.7-4.1) g/dL Albumin/Globulin Ratio 1.4 (1.0-2.8) Lipase 61 (23-300) U/L SARS-CoV-2 (PCR) Negative (Negative) Influenza A (RT-PCR) Flu a negative (NEGATIVE) Influenza B (RT-PCR) Flu b negative (NEGATIVE) RSV (PCR) Negative (Negative) MDM Narrative Additional Information: COVID flu negative. Patient's symptoms started approximately 45 minutes after taking his 1st dose of doxycycline. Possibly a medication intolerance. Will switch to other coverage for his finger cellulitis. Patient stable for discharge. Discharge Plan Departure Patient Disposition: Home Clinical Impression: Drug-induced nausea and vomiting, Finger infection Activity Restrictions/Additional Instructions: Return for fever > 38?C, vomiting, inability to tolerate fluids, abnormal bowel movements, or unable to pass gas. Regrese por fiebre >38 ? C, v?mitos, incapacidad para tolerar l?quidos, deposiciones anormales o incapacidad para evacuar gases. Prescriptions: New cefpodoxime 200 mg tablet 200 mg PO BID Qty: 20 0RF Rx Instructions: must administer with a meal/food sulfamethoxazole-trimethoprim [Bactrim DS] 800-160 mg tablet 1 tab PO BID Qty: 10 0RF ondansetron 4 mg tablet,disintegrating 4 mg PO Q8H PRN (Reason: nausea and vomiting) Qty: 7 0RF No Action oxycodone 5 mg tablet 5 mg PO Q4H PRN (Reason: pain) Qty: 30 0RF hydroxyzine pamoate [Vistaril] 25 mg capsule 25 mg PO QID PRN (Reason: spasm and nausea) Qty: 20 0RF doxycycline hyclate 100 mg capsule 100 mg PO BID Qty: 14 0RF Referrals: Scarlett Patel MD [Primary Care Provider, Internal Medicine] Stand Alone Forms: Patient Portal/API
[2025-08-12] MEDS: ONDANSETRON 4 MG/2 ML INJ IV (06:30)
[2025-08-12] MEDS: LACTATED RINGERS 1,000 ML 1000 ML IV (06:31)
[2025-08-12 06:35] LABS: Add Manual Diff / Slide Review NO; Hematocrit 41.1 % (41-53); Hemoglobin 14.4 g/dL (13.5-17.5); Lymphocytes Absolute Auto 900 /uL (1100-4500); Mean Corpuscular HGB Conc 34.9 % (30-36); Mean Corpuscular Hemoglobin 31.7 PG (26-34); Mean Corpuscular Volume 90.8 fL (80-100); Platelet Count 329 X10^3/uL (150-400)
[2025-08-12 06:47] LABS: Alanine Aminotransferase 44 IU/L (<50); Albumin 4.6 g/dL (3.5-5.0); Albumin Globulin Ratio 1.4 (1.0-2.8); Alkaline Phosphatase 72 U/L (38-126); Blood Urea Nitrogen 11 mg/dL (9-20); Calcium 9.1 mg/dL (8.4-10.2); Carbon Dioxide 24 mmol/L (22-32); Chloride 103 mmol/L (98-107); Estimated Glomerular Filt Rate > 60 mL/min (>60); Globulin 3.2 g/dL (1.7-4.1); Glucose 103 mg/dL (70-99); HEMOLYSIS < 15 (0-50); Lipase 61 U/L (23-300); Potassium 3.6 mmol/L (3.4-5.1); Sodium 137 mmol/L (137-145); Total Protein 7.8 g/dL (6.3-8.2)
[2025-08-12 07:18] LABS: Influenza A - CEPHEID Flu A NEGATIVE (NEGATIVE); Influenza B - CEPHEID Flu B NEGATIVE (NEGATIVE)
[2025-08-12 07:19] LABS: COVID-19 CEPHEID 4-PLEX PCR Negative (Negative)
== END 2025-08-12 10:30 | disposition home or self-care (01) ==
PROVIDERS: Family Medicine; Emergency Provider Emergency Medicine; PCP Internal Medicine
DX: R11.2 Nausea with vomiting, unspecified (principal); T36.4X5A Adverse effect of tetracyclines, initial encounter; L03.011 Cellulitis of right finger; Y99.0 Civilian activity done for income or pay
CPT/HCPCS: 36415; 80053; 83690; 85025; 87637; 96361; 96374; 99284; J2405; J7120